=== PATIENT | female | born 1970 ===

== ENCOUNTER 2023-05-12 13:51 | Outpatient (AMB) | payer OTHER, SELFPAY ==
--- NOTE | 2023-05-12 13:53 | MHC.PC.OV ---
Vital Signs 05/12/23 14:02 Height 5 ft 1.5 in Weight 120 lb BMI 22.3 BP 130/84 Blood Pressure Location Lt brachial Position Sitting Pulse 87 Pulse Source Pulse Oximeter Pulse Oximetry (%) 96 Oxygen Delivery Method Room Air Intake Visit Reasons: Sore throat x 2 days Intake Note: Pt is here today for a sick visit. Pt c/o sore throat, fever, chills, body aches dry cough that causes pain in the back and chest for the last 2 days. Allergies No Known Allergies Allergy (Verified 05/12/23 14:04) Tobacco use date assessed: 05/12/23 Dental Screening Dental Screen Date: 05/12/23 Did you have a dental visit in the last 12 months?: Yes Did you have a dental problem in the last 6 months where you did not have access to dental care?: No Was dental information given to patient?: Patient has dentist HPI Sore throat x 2 days HPI Details Pt c/o body aches, nasal congestion, fever 101, dry cough, sore throat for 2 days. Pt denies pleurisy shortness of breath, GI , complaints PFSH Medical History Annual physical exam Social History Housing: House Patient Tobacco Use Status: Never used Tobacco e-Cigarette/Vaping Use: Never Used Current occupational status: employed Cognitive needs: No Hearing needs: No Vision needs: Yes Questionnaire Thrive Questionnaire Date Thrive assessed: 12/11/21 AUDIT C Alcohol Use Questionnaire (AUDIT-C) 1. How often do you have a drink containing alcohol?: Monthly or less 2. How many drinks containing alcohol do you have on a typical day when you are drinking?: 1 or 2 3. How often do you have six or more drinks on one occasion?: Never Total Score: 1 MURALI-7 AMB Questionnaire MURALI-7 Date MURALI - 7 assessed: 12/11/21 Source: Developed by Drs. Florentino Mera, Elisha Stewart, Ronaldo Appiah and colleagues, with an educational edmar from [email or web address]. Review of Systems Const All systems reviewed & are unremarkable except as noted in HPI and below Reports no additional complaints Eyes Reports no additional complaints ENT Reports no additional complaints Card Reports no additional complaints Resp Reports no additional complaints GI Reports no additional complaints Physical exam (Primary Care) Vital Signs: Last Vital Signs Pulse 87 05/12/23 14:02 BP 130/84 05/12/23 14:02 Pulse Ox 96 05/12/23 14:02 Oxygen Delivery Method Room Air 05/12/23 14:02 BMI result Body Mass Index 22.3 Tobacco/Smoking Status: Tobacco use Status Tobacco use date assessed 05/12/23 05/12/23 14:08 Patient Tobacco Use Status Never used Tobacco 05/12/23 13:53 e-Cigarette/Vaping Use Never Used 05/12/23 13:53 Thrive Assessment: Date of Thrive Assessment Date Thrive assessed 12/11/21 05/12/23 13:53 Const General: no acute distress HENMT Head: Yes normal to inspection Face and sinus: Yes normal facial exam and No sinus tenderness Throat: Yes posterior oropharynx abnormal (erythema) and Yes postnasal drainage Neck Neck: Yes no lymphadenopathy and Yes supple Resp Effort & Inspection: normal respiratory effort Auscultation: clear to auscultation bilaterally Cardio Rhythm: regular rhythm Heart sounds: S1 normal heart sound present and S2 normal heart sound present Assessment and Plan Assessment & Plan (1) URI (upper respiratory infection): Code(s): J06.9 - Acute upper respiratory infection, unspecified Plan: Supportive care discussed with the patient. She is not interested in taking Paxlovid or Tamiflu if nasal swab is positive Orders: Orders SARS-CoV2/FLU/RSV Today R09.89 - Other specified symptoms and signs involving the circulatory and respiratory systems Coding Level of Care Code Est Pt Level 3 (08850) Diagnoses URI (upper respiratory infection) J06.9
[2023-05-12 14:02] VITALS: BP 130/84; PULSE 87; O2SAT 96; BMI 22.3
== END 2023-05-12 15:06 | disposition home or self-care (01) ==
PROVIDERS: PCP Internal Medicine; Visit Provider Internal Medicine
DX: J06.9 Acute upper respiratory infection, unspecified (principal)
CPT/HCPCS: 99213

== ENCOUNTER 2023-05-12 14:27 | Outpatient (REF) | payer OTHER, SELFPAY ==
[2023-05-12 17:06] LABS: Influenza A PCR POSITIVE (Negative); Influenza B PCR NEGATIVE (Negative); Resp Syncy Virus RNA Qual PCR NEGATIVE (Negative); SARS COV2 PCR INHOUSE POSITIVE (Negative)
== END 2023-05-12 14:28 | disposition home or self-care (01) ==
LOC: HO.LAB 14:27
PROVIDERS: Visit Provider Internal Medicine
DX: R09.89 Other specified symptoms and signs involving the circulatory and respiratory systems (principal)
CPT/HCPCS: 0241U

== ENCOUNTER 2023-07-30 10:30 | Outpatient (AMB) | payer OTHER, SELFPAY ==
[2023-07-30 10:31] VITALS: BP 124/80; PULSE 55; O2SAT 98; BMI 22.5
--- NOTE | 2023-07-30 10:31 | MHC.PC.OV ---
Vital Signs 07/30/23 10:31 Height 5 ft 1.5 in Weight 121 lb BMI 22.5 BP 124/80 Blood Pressure Location Lt brachial Position Sitting Pulse 55 Pulse Source Pulse Oximeter Pulse Oximetry (%) 98 Oxygen Delivery Method Room Air Intake Visit Reasons: PE Intake Note: Pt is here today for PE. Allergies No Known Allergies Allergy (Verified 07/30/23 10:33) Medication List - Last Reconciled 07/30/23 by Julianna Bañuelos MD olmesartan 40 mg PO DAILY Tobacco use date assessed: 07/30/23 Dental Screening Dental Screen Date: 05/12/23 HPI PE HPI Details Pt presents for PE. [facility] Medical History Annual physical exam Surgical History No pertinent past surgical history Family History (Updated 07/30/23 @ 10:37 by ASHLEY Guillory) Father Hypertension Mother No problems noted. Social History Housing: House Patient Tobacco Use Status: Never used Tobacco e-Cigarette/Vaping Use: Never Used service: No Current occupational status: employed Cognitive needs: No Hearing needs: No Vision needs: Yes Questionnaire PHQ-9 Over the last 2 weeks, how often have you been bothered by any of the following problems? 1. Little interest or pleasure in doing things: not at all 2. Feeling down, depressed, or hopeless: not at all 3. Trouble falling or staying asleep, or sleeping too much: not at all 4. Feeling tired or having little energy: not at all 5. Poor appetite or overeating: not at all 6. Feeling bad about yourself - or that you are a failure or have let yourself or your family down: not at all 7. Trouble concentrating on things, such as reading the newspaper or watching television: not at all 8. Moving or speaking so slowly that other people could have noticed. Or the opposite - being so fidgety or restless that you have been moving around a lot more than usual: not at all 9. Thoughts that you would be better off or of hurting yourself in some way: not at all Total score: 0 Depression Screening Interpretation: Negative Depression Screening Done: Yes Source: Developed by Drs. Florentino Mera, Elisha Stewart, Ronaldo Appiah and colleagues, with an educational edmar from [employer]. Thrive Questionnaire Date Thrive assessed: 07/30/23 I am a: Patient What is your living situation today?: I have a steady place to live Within the past 12 months, did the food you bought not last and you didn't have the money to get more?: Never true Within the past 12 months, did you worry whether your food would run out before you got money to buy more?: Never true Do you have trouble paying for medicines?: No Do you have trouble getting transportation to medical appointments?: No Do you have trouble paying your heating and electricity bill?: No Do you have trouble taking care of your child, family member or friend?: No Do you have trouble with day-to-day activities such as bathing, preparing meals, shopping, managing finances, etc.?: No Are you currently unemployed and looking for a job?: No Are you interested in more education?: No Please select the resources that you would like help with: None THRIVE Score: 0 MURALI-7 AMB Questionnaire MURALI-7 Date MURALI - 7 assessed: 07/30/23 Feeling nervous, anxious, or on edge: 0 = Not at all Not being able to stop or control worryin = Not at all Worrying too much about different things: 0 = Not at all Trouble relaxin = Not at all Being so restless that it is hard to sit still: 0 = Not at all Becoming easily annoyed or irritable: 0 = Not at all Feeling afraid as if something awful might happen: 0 = Not at all Total MURALI-7 score (0-4 normal; 5-9 mild; 10-14 moderate; 15-21 severe): 0 Source: Developed by Drs. Florentino Mera, Elisha Stewart, Ronaldo Appiah and colleagues, with an educational edmar from [employer]. Review of Systems Const All systems reviewed & are unremarkable except as noted in HPI and below Reports no additional complaints Eyes Reports no additional complaints ENT Reports no additional complaints Card Reports no additional complaints Resp Reports no additional complaints GI Reports no additional complaints Reports no additional complaints Physical exam (Primary Care) Vital Signs: Last Vital Signs Pulse 55 07/30/23 10:31 BP 124/80 07/30/23 10:31 Pulse Ox 98 07/30/23 10:31 Oxygen Delivery Method Room Air 07/30/23 10:31 BMI result Body Mass Index 22.5 Tobacco/Smoking Status: Tobacco use Status Tobacco use date assessed 07/30/23 07/30/23 10:34 Patient Tobacco Use Status Never used Tobacco 07/30/23 10:34 e-Cigarette/Vaping Use Never Used 07/30/23 10:34 PHQ-9: PHQ-9 Score PHQ-9: Total score 0 07/30/23 11:08 Depression Screening Interpretation: Negative Thrive Assessment: Date of Thrive Assessment Date Thrive assessed 07/30/23 07/30/23 10:38 Const General: no acute distress HENMT Head: Yes normal to inspection Ears: hearing grossly normal bilaterally General nose exam: Normal external nose present Mouth: Normal oral and palatal mucosa present Eyes General: appearance normal, both eyes and all related structures Resp Effort & Inspection: normal respiratory effort Auscultation: clear to auscultation bilaterally Cardio Rhythm: regular rhythm Heart sounds: S1 normal heart sound present and S2 normal heart sound present GI Inspection: Yes normal to inspection Palpation (GI): Soft to palpation Percussion: Yes normal to percussion Auscultation: normal bowel sounds Assessment and Plan Assessment & Plan (1) HTN (hypertension): Code(s): I10 - Essential (primary) hypertension Plan: Continue olmesartan (2) Annual physical exam: Comment: Negative Cologuard January 2022 Code(s): Z00.00 - Encounter for general adult medical examination without abnormal findings Plan: Well-balanced diet regular physical activity discussed with the patient. She is up-to-date with Pap smear by [facility] mammogram Orders: Orders Hemoglobin A1c Today Coding Level of Care Code Est Pt Prev Care 40-64y(50920) Diagnoses HTN (hypertension) I10 Annual physical exam Z00.00
== END 2023-07-30 11:17 | disposition home or self-care (01) ==
PROVIDERS: PCP Internal Medicine; Visit Provider Internal Medicine
DX: I10 Essential (primary) hypertension (principal); Z00.00 Encounter for general adult medical examination without abnormal findings
CPT/HCPCS: 99396